=== PATIENT | female | born 1970 | race Two or more races ===

== ENCOUNTER → 2016-10-04 | Outpatient (CLI) | payer MEDICAID ==
[2016-10-04 13:45] LABS: BUN 9 mg/dL (7-18); GFR (ESTIMATED) 78 ML/MIN (59-)
== END ==
LOC: MAY-LAB 13:13
PROVIDERS: Internal Medicine Cardiovascular Disease
DX: I50.30 Unspecified diastolic (congestive) heart failure (principal)